=== PATIENT | female | born 1960 | race Caucasian/White ===

== ENCOUNTER 2017-02-16 19:22 | Emergency (ER) | payer BC ==
[~2017-02-16] VITALS: Ht 160 cm; Wt 81.6 kg
[2017-02-16 19:36] VITALS: BP_SYST 128
--- NOTE | 2017-02-16 19:40 | NUR ---
Note raymond in EDM - 02/16/17 at 1944 by [email or web address] Patient to ER bed 08 to jayla for evaluation. Side rails up. Report given to Maury ASH
--- NOTE | 2017-02-16 19:40 | NUR ---
Patient to ER bed 04 to gown for evaluation. Side rails up.
--- NOTE | 2017-02-16 19:42 | NUR ---
Patient AAOx4, ambulatory with steady gait. Patient states having numbness to first digit of left toe for 2 days prior to ER visit. patient also states that the fourth and fifth digit of left toe "turns purple when she stands on it". Patient denies difficulty moving and denies pain to toes. Patient denies any other complaints.
--- NOTE | 2017-02-16 19:55 | NUR ---
ER Dr. Higuera at bedside examining patient.
[2017-02-16 20:16] VITALS: BP_SYST 125
--- NOTE | 2017-02-16 20:16 | NUR ---
Patient given written and verbal discharge instructions and verbalizes understanding. ER MD discussed with patient the results and treatment provided. Patient in stable condition. ID arm band removed. Patient educated on pain management and to follow up with PMD. Pain Scale 0/10. Opportunity for questions provided and answered.
== END 2017-02-16 20:16 | disposition home or self-care (01) ==
LOC: SED 19:22
DX: R20.2 Paresthesia of skin (principal); Z90.710 Acquired absence of both cervix and uterus
CPT/HCPCS: 99281